=== PATIENT | female | born 1990 | race Caucasian/White ===

== ENCOUNTER 2018-07-18 16:17 | Inpatient (IN) | payer OTHER ==
[~2018-07-18] VITALS: Ht 152.4 cm; Wt 3.2 kg
[~2018-07-18 16:17] MED LIST: EXTRA-VIRT PLU1 EACH; IRON1TAB4 PO; TYLENOL-CODEINE1 TAB PO; ZYRTEC10 M3 PO
[2018-07-25] MEDS ORDERED: BIOTIN1 M1 PO (10:56)
[2018-07-28] MEDS ORDERED: CODE1TAB37 PO (10:08)
== END 2018-07-28 11:39 | disposition home or self-care (01) | DRG 785 ==
LOC: OB/GYN 07-25 09:58 → O/R 07-25 09:58 → OB/GYN 07-25 14:21
PROVIDERS: ADMIT Obstetrics & Gynecology
PROC: 0UL70ZZ Occlusion of Bilateral Fallopian Tubes, Open Approach (ICD-10-PCS; 2018-07-25)
PROC: 4A1HXCZ Monitoring of Products of Conception, Cardiac Rate, External Approach (ICD-10-PCS; 2018-07-25)
PROC: 10D00Z1 Extraction of Products of Conception, Low, Open Approach (ICD-10-PCS; principal; 2018-07-25 18:30)
DX: O82 Encounter for cesarean delivery without indication (principal); Z3A.38 38 weeks gestation of pregnancy; Z37.0 Single live birth; Z30.2 Encounter for sterilization